=== PATIENT | male | born 1950 | race Caucasian/White ===

== ENCOUNTER 2021-12-25 16:51 | Inpatient (IN) | payer OTHER ==
[2021-12-25 17:36] VITALS: BMI 19.3
[2021-12-26] MEDS ORDERED: IBUPROFEN 400 MG TABLET (FP) PO ONE (00:14)
[2021-12-26] MEDS ORDERED: MENTHOL/PHENOL 1 EACH UD MM PRN (00:57)
[2021-12-26] MEDS ORDERED: NICOTINE 10 MG CARTRIDGE (INHALER) IH PRN (00:57)
[2021-12-26] MEDS ORDERED: ACETAMINOPHEN 325 MG TABLET (FP) PO PRN ×2 (00:57)
[2021-12-26] MEDS ORDERED: MAGNESIUM CITRATE 300 ML BOTTLE PO PRN (00:57)
[2021-12-26] MEDS ORDERED: NICOTINE POLACRILEX 2 MG GUM BUC PRN (00:57)
[2021-12-26] MEDS ORDERED: IBUPROFEN 400 MG TABLET (FP) PO PRN (00:57)
[2021-12-26] MEDS ORDERED: MAGNESIUM HYDROX 2400MG/30ML ORAL SUSPENSION 30 ML CUP PO PRN (00:57)
[2021-12-26] MEDS ORDERED: BISMUTH SUBSALICYLATE 524 MG/30 ML PO PRN (00:57)
[2021-12-26] MEDS ORDERED: MAG HYDROX/AL HYDROX/SIMETH 30 ML UNIT-DOSE CUP PO PRN (00:57)
[2021-12-26] MEDS ORDERED: ONDANSETRON *ODT* 4 MG TABLET SL PRN (00:57)
[2021-12-26] MEDS ORDERED: chlordiazePOXIDE HCL 25 MG CAPSULE PO PRN (01:00)
[2021-12-26] MEDS: chlordiazePOXIDE HCL 25 MG CAPSULE PO SCH ×4 (07:00→22:56)
[2021-12-26] MEDS ORDERED: chlordiazePOXIDE HCL 25 MG CAPSULE ONE (07:06)
[2021-12-26] MEDS: NICOTINE 14 MG/24 HOURS TOPICAL PATCH TD SCH (11:33)
[2021-12-26] MEDS: PRENATAL VITAMINS W/ FOLIC ACID TABLET (FP) PO SCH (11:45)
[2021-12-26] MEDS: methaDONE HCL 40 MG DISPERSABLE TABLET PO SCH (11:45)
[2021-12-26] MEDS: THIAMINE HCL 100 MG TABLET (FP) PO SCH (22:56)
[2021-12-26] MEDS: MELATONIN 5 MG TABLETS PO SCH (22:56)
[2021-12-26] MEDS: METHOCARBAMOL 500 MG TABLET PO PRN (22:57)
[2021-12-27] MEDS: chlordiazePOXIDE HCL 25 MG CAPSULE PO SCH ×4 (07:42→22:52)
[2021-12-27] MEDS: methaDONE HCL 40 MG DISPERSABLE TABLET PO SCH (07:42)
[2021-12-27] MEDS: NICOTINE 14 MG/24 HOURS TOPICAL PATCH TD SCH (10:32)
[2021-12-27] MEDS: PRENATAL VITAMINS W/ FOLIC ACID TABLET (FP) PO SCH (10:33)
[2021-12-27 12:04] LABS: HEMATOCRIT 40.3 % (35.4-49); HEMOGLOBIN 13.5 GM/dL (11.7-16.9); MCH 31.5 pg (25.7-33.7); MCHC 33.5 g/dl (32.0-35.9); MEAN CELL VOLUME 93.9 fl (80-96); MEAN PLT VOLUME 8.1 fl (7.5-11.1); PLATELET COUNT 149 10^3/uL (134-434); RBC 4.29 M/mm3 (4.00-5.60); RDW 15.2 % (11.9-15.9); WHITE BLOOD COUNT 4.3 K/mm3 (4.0-10.0)
[2021-12-27 12:12] LABS: CALCIUM 9.4 mg/dL (8.5-10.1)
[2021-12-27 12:13] LABS: ALBUMIN 3.2 g/dl (3.4-5.0); BLOOD UREA NITROGEN 16.5 mg/dL (7-18)
[2021-12-27 12:16] LABS: CREATININE 0.6 mg/dL (0.55-1.3)
[2021-12-27 12:18] LABS: BILIRUBIN,TOTAL 0.7 mg/dL (0.2-1)
[2021-12-27] MEDS: MELATONIN 5 MG TABLETS PO SCH (22:53)
[2021-12-27] MEDS: THIAMINE HCL 100 MG TABLET (FP) PO SCH (22:53)
[2021-12-28] MEDS ORDERED: chlordiazePOXIDE HCL 10 MG CAPSULE PO PRN
[2021-12-28] MEDS: chlordiazePOXIDE HCL 10 MG CAPSULE PO SCH ×4 (06:26→22:04)
[2021-12-28] MEDS: methaDONE HCL 40 MG DISPERSABLE TABLET PO SCH (06:27)
[2021-12-28] MEDS: METHOCARBAMOL 500 MG TABLET PO PRN ×2 (10:53→18:40)
[2021-12-28] MEDS: PRENATAL VITAMINS W/ FOLIC ACID TABLET (FP) PO SCH (10:53)
[2021-12-28] MEDS: NICOTINE 14 MG/24 HOURS TOPICAL PATCH TD SCH (10:54)
[2021-12-28] MEDS: THIAMINE HCL 100 MG TABLET (FP) PO SCH (22:04)
[2021-12-28] MEDS: MELATONIN 5 MG TABLETS PO SCH (22:04)
[2021-12-29] MEDS: methaDONE HCL 40 MG DISPERSABLE TABLET PO SCH (06:16)
[2021-12-29] MEDS: chlordiazePOXIDE HCL 10 MG CAPSULE PO SCH ×2 (06:17→17:31)
[2021-12-29] MEDS: PRENATAL VITAMINS W/ FOLIC ACID TABLET (FP) PO SCH (11:12)
[2021-12-29] MEDS: NICOTINE 14 MG/24 HOURS TOPICAL PATCH TD SCH (11:12)
[2021-12-29] MEDS: THIAMINE HCL 100 MG TABLET (FP) PO SCH (22:46)
[2021-12-29] MEDS: MELATONIN 5 MG TABLETS PO SCH (22:46)
[2021-12-29] MEDS: METHOCARBAMOL 500 MG TABLET PO PRN (22:47)
[2021-12-30] MEDS ORDERED: chlordiazePOXIDE HCL 10 MG CAPSULE PO ONE (05:00)
[2021-12-30] MEDS: methaDONE HCL 40 MG DISPERSABLE TABLET PO SCH (06:48)
[2021-12-30] MEDS: NICOTINE 14 MG/24 HOURS TOPICAL PATCH TD SCH (09:51)
[2021-12-30] MEDS: PRENATAL VITAMINS W/ FOLIC ACID TABLET (FP) PO SCH (09:51)
[2021-12-30] MEDS: MELATONIN 5 MG TABLETS PO SCH (23:58)
[2021-12-30] MEDS: THIAMINE HCL 100 MG TABLET (FP) PO SCH (23:58)
[2021-12-31] MEDS: methaDONE HCL 40 MG DISPERSABLE TABLET PO SCH (06:30)
[2021-12-31] MEDS: PRENATAL VITAMINS W/ FOLIC ACID TABLET (FP) PO SCH (11:03)
[2021-12-31] MEDS: NICOTINE 14 MG/24 HOURS TOPICAL PATCH TD SCH (11:04)
[2021-12-31] MEDS: MELATONIN 5 MG TABLETS PO SCH (21:56)
[2021-12-31] MEDS: METHOCARBAMOL 500 MG TABLET PO PRN (21:56)
[2021-12-31] MEDS: THIAMINE HCL 100 MG TABLET (FP) PO SCH (21:56)
[2022-01-01] MEDS: methaDONE HCL 40 MG DISPERSABLE TABLET PO SCH (06:31)
[2022-01-01] MEDS: NICOTINE 14 MG/24 HOURS TOPICAL PATCH TD SCH (11:54)
[2022-01-01] MEDS: PRENATAL VITAMINS W/ FOLIC ACID TABLET (FP) PO SCH (11:54)
[2022-01-01] MEDS: THIAMINE HCL 100 MG TABLET (FP) PO SCH (23:22)
[2022-01-01] MEDS: MELATONIN 5 MG TABLETS PO SCH (23:22)
[2022-01-02] MEDS: methaDONE HCL 40 MG DISPERSABLE TABLET PO SCH (07:00)
[2022-01-02] MEDS: NICOTINE 14 MG/24 HOURS TOPICAL PATCH TD SCH (12:08)
[2022-01-02] MEDS: PRENATAL VITAMINS W/ FOLIC ACID TABLET (FP) PO SCH (12:08)
[2022-01-02] MEDS: MELATONIN 5 MG TABLETS PO SCH (23:31)
[2022-01-02] MEDS: THIAMINE HCL 100 MG TABLET (FP) PO SCH (23:32)
[2022-01-03] MEDS: methaDONE HCL 40 MG DISPERSABLE TABLET PO SCH (07:01)
[2022-01-03] MEDS: PRENATAL VITAMINS W/ FOLIC ACID TABLET (FP) PO SCH (11:34)
[2022-01-03] MEDS: NICOTINE 14 MG/24 HOURS TOPICAL PATCH TD SCH (11:34)
[2022-01-03] MEDS: THIAMINE HCL 100 MG TABLET (FP) PO SCH (22:26)
[2022-01-03] MEDS: MELATONIN 5 MG TABLETS PO SCH (22:26)
[2022-01-04] MEDS: methaDONE HCL 40 MG DISPERSABLE TABLET PO SCH (06:24)
[2022-01-04] MEDS ORDERED: COLLOIDAL OATMEAL 1 BAR EACH TP PRN (09:33)
[2022-01-04] MEDS: NICOTINE 14 MG/24 HOURS TOPICAL PATCH TD SCH (11:19)
[2022-01-04] MEDS: PRENATAL VITAMINS W/ FOLIC ACID TABLET (FP) PO SCH (11:20)
[2022-01-04] MEDS: THIAMINE HCL 100 MG TABLET (FP) PO SCH (22:58)
[2022-01-04] MEDS: MELATONIN 5 MG TABLETS PO SCH (22:58)
[2022-01-05] MEDS: methaDONE HCL 40 MG DISPERSABLE TABLET PO SCH (06:16)
[2022-01-05] MEDS: NICOTINE 14 MG/24 HOURS TOPICAL PATCH TD SCH (10:58)
[2022-01-05] MEDS: PRENATAL VITAMINS W/ FOLIC ACID TABLET (FP) PO SCH (10:58)
[2022-01-05 12:58] VITALS: BP 134/72; PULSE 66; TEMP 97.1
== END 2022-01-05 15:05 | disposition home or self-care (01) | DRG 896 ==
LOC: YASAS 16:51 → Y6N 12-26 05:22
PROVIDERS: ADMIT Allergy & Immunology; ATTEND Allergy & Immunology
PROC: HZ2ZZZZ Detoxification Services for Substance Abuse Treatment (ICD-10-PCS; principal; 2021-12-26)
DX: F10.230 Alcohol dependence with withdrawal, uncomplicated (principal); U07.1 COVID-19; F11.20 Opioid dependence, uncomplicated; F17.210 Nicotine dependence, cigarettes, uncomplicated; F19.24 Other psychoactive substance dependence with psychoactive substance-induced mood disorder; F32.A Depression, unspecified; I10 Essential (primary) hypertension; H54.61 Unqualified visual loss, right eye, normal vision left eye; Z99.89 Dependence on other enabling machines and devices; Z86.11 Personal history of tuberculosis; Z86.69 Personal history of other diseases of the nervous system and sense organs; Z95.0 Presence of cardiac pacemaker
CPT/HCPCS: 36415; 71046-TC-FY; 80053; 85027; 86780; 93005; 93010; C9803; U0003; U0005

== ENCOUNTER 2023-09-14 10:50 | Inpatient (IN) | payer OTHER ==
[2023-09-14 11:43] VITALS: BMI 18.3
[2023-09-14] MEDS ORDERED: MAGNESIUM HYDROX 2400MG/30ML ORAL SUSPENSION 30 ML CUP PO PRN (12:04)
[2023-09-14] MEDS ORDERED: hydrOXYzine PAMOATE 25 MG CAPSULE (FP) PO PRN (12:04)
[2023-09-14] MEDS ORDERED: NALOXONE HCL (KLOXXADO) 8 MG SPRAY NS PRN (12:04)
[2023-09-14] MEDS ORDERED: NICOTINE POLACRILEX 2 MG GUM BUC PRN (12:04)
[2023-09-14] MEDS ORDERED: LOPERAMIDE HCL 2 MG CAPSULE PO PRN (12:04)
[2023-09-14] MEDS ORDERED: BENZOCAINE/MENTHOL (CHLORASEPTIC ) LOZENGE MM PRN (12:04)
[2023-09-14] MEDS ORDERED: IBUPROFEN 600 MG TABLET (FP) PO PRN (12:04)
[2023-09-14] MEDS ORDERED: BISMUTH SUBSALICYLATE 262 MG/15 ML BTL PO PRN (12:04)
[2023-09-14] MEDS ORDERED: METHOCARBAMOL 500 MG TABLET PO PRN (12:04)
[2023-09-14] MEDS ORDERED: BENZONATATE 200 MG CAPSULE PO PRN (12:04)
[2023-09-14] MEDS ORDERED: ACETAMINOPHEN 325 MG TABLET (FP) PO PRN (12:04)
[2023-09-14] MEDS ORDERED: NALOXONE HCL 0.4 MG/ML VIAL IM PRN (12:04)
[2023-09-14] MEDS ORDERED: IBUPROFEN 400 MG TABLET (FP) PO PRN (12:04)
[2023-09-14] MEDS ORDERED: MAG HYDROX/AL HYDROX/SIMETH 30 ML UNIT-DOSE CUP PO PRN (12:04)
[2023-09-14] MEDS ORDERED: POLYETHYLENE GLYCOL (HEALTHYLAX) 3350 17 GM PACKET PO PRN (12:04)
[2023-09-14] MEDS ORDERED: ONDANSETRON *ODT* 4 MG TABLET SL PRN (12:04)
[2023-09-14] MEDS ORDERED: guaiFENesin 600 MG TABLET.ER (FP) PO PRN (12:04)
[2023-09-14] MEDS ORDERED: DICYCLOMINE HCL 10 MG CAPSULE PO PRN (12:04)
[2023-09-14] MEDS: LORazepam 1 MG TABLET PO PRN (12:43)
[2023-09-14] MEDS: PRENATAL VITAMINS W/ FOLIC ACID TABLET (FP) PO SCH (12:56)
[2023-09-14] MEDS ORDERED: LORazepam 1 MG TABLET ONE (12:57)
[2023-09-14] MEDS ORDERED: cloNIDine HCL 0.1 MG TABLET PO ONE (14:00)
[2023-09-14] MEDS ORDERED: methaDONE HCL 10 MG TABLET PO SCH (15:00)
[2023-09-14] MEDS: methaDONE 40 MG, methaDONE 10 MG PO SCH (15:05)
[2023-09-14] MEDS: LORazepam 2 MG TABLET PO SCH ×2 (17:15→22:23)
[2023-09-14 17:17] LABS: CHLORIDE 96 mmol/L (98-107); POTASSIUM 3.9 mmol/L (3.5-5.1); SODIUM 137 mmol/L (136-145)
[2023-09-14 17:18] LABS: HEMATOCRIT 45.8 % (35.4-49); HEMOGLOBIN 15.3 GM/dL (11.7-16.9); MCH 32.1 pg (25.7-33.7); MCHC 33.4 g/dl (32.0-35.9); MEAN PLT VOLUME 9.3 fl (7.5-11.1); PLATELET COUNT 108 10^3/uL (134-434); RBC 4.77 M/mm3 (4.00-5.60); RDW 13.6 % (11.9-15.9); WHITE BLOOD COUNT 4.9 K/mm3 (4.0-10.0)
[2023-09-14 17:23] LABS: ALBUMIN 4.2 g/dl (3.4-5.0); ANION GAP 11 mmol/L (4-13); BLOOD UREA NITROGEN 14.1 mg/dL (7-18); CO2 31 mmol/L (21-32); GLUCOSE,RANDOM 81 mg/dL (74-106)
[2023-09-14 17:26] LABS: CREATININE 0.9 mg/dL (0.55-1.3); SGOT/AST 106 U/L (15-37); SGPT/ALT 64 U/L (13-61)
[2023-09-14 17:27] LABS: TOT PROT 9.1 g/dl (6.4-8.2)
[2023-09-14 17:28] LABS: BILIRUBIN,TOTAL 1.6 mg/dL (0.2-1)
[2023-09-14 17:29] LABS: ALK PHOS 118 U/L (45-117)
[2023-09-14] MEDS: THIAMINE HCL 100 MG TABLET (FP) PO SCH (22:24)
[2023-09-14] MEDS: MELATONIN 5 MG TABLETS PO SCH (22:25)
[2023-09-15] MEDS: LORazepam 1 MG TABLET PO PRN (01:02)
[2023-09-15] MEDS ORDERED: LORazepam 2 MG/ML SDV VIAL IM ONE (01:36)
[2023-09-15] MEDS: LORazepam 2 MG TABLET PO SCH ×4 (05:19→23:06)
[2023-09-15] MEDS: methaDONE 40 MG, methaDONE 10 MG PO SCH (05:19)
[2023-09-15] MEDS ORDERED: cloNIDine HCL 0.1 MG TABLET PO ONE (07:15)
[2023-09-15] MEDS: PRENATAL VITAMINS W/ FOLIC ACID TABLET (FP) PO SCH (10:42)
[2023-09-15] MEDS: LACTULOSE 20 GM/30 ML UDC (FOR ORAL USE ONLY) PO SCH ×3 (13:25→22:51)
[2023-09-15] MEDS: THIAMINE HCL 100 MG TABLET (FP) PO SCH (22:51)
[2023-09-15] MEDS: MELATONIN 5 MG TABLETS PO SCH (23:06)
[2023-09-16] MEDS: LORazepam 1 MG TABLET PO SCH ×4 (05:54→21:59)
[2023-09-16] MEDS: methaDONE 40 MG, methaDONE 10 MG PO SCH (05:58)
[2023-09-16] MEDS: PRENATAL VITAMINS W/ FOLIC ACID TABLET (FP) PO SCH (10:03)
[2023-09-16] MEDS: LACTULOSE 20 GM/30 ML UDC (FOR ORAL USE ONLY) PO SCH ×4 (10:03→21:57)
[2023-09-16 12:21] LABS: POTASSIUM 3.7 mmol/L (3.5-5.1)
[2023-09-16 12:37] LABS: BILIRUBIN,TOTAL 1.4 mg/dL (0.2-1)
[2023-09-16 12:41] LABS: ALBUMIN 3.7 g/dl (3.4-5.0); CALCIUM 9.8 mg/dL (8.5-10.1)
[2023-09-16 12:42] LABS: BLOOD UREA NITROGEN 14.4 mg/dL (7-18)
[2023-09-16 12:43] LABS: CREATININE 0.7 mg/dL (0.55-1.3)
[2023-09-16 12:45] LABS: TOT PROT 7.8 g/dl (6.4-8.2)
[2023-09-16] MEDS: THIAMINE HCL 100 MG TABLET (FP) PO SCH (21:58)
[2023-09-16] MEDS: MELATONIN 5 MG TABLETS PO SCH (21:58)
[2023-09-17] MEDS ORDERED: LORazepam 0.5 MG TABLET PO PRN
[2023-09-17] MEDS: methaDONE 40 MG, methaDONE 10 MG PO SCH (05:31)
[2023-09-17] MEDS: LORazepam 0.5 MG TABLET PO SCH ×4 (05:31→22:44)
[2023-09-17] MEDS: PRENATAL VITAMINS W/ FOLIC ACID TABLET (FP) PO SCH (10:37)
[2023-09-17] MEDS: LACTULOSE 20 GM/30 ML UDC (FOR ORAL USE ONLY) PO SCH ×4 (10:38→22:48)
[2023-09-17] MEDS: MELATONIN 5 MG TABLETS PO SCH (22:44)
[2023-09-17] MEDS: THIAMINE HCL 100 MG TABLET (FP) PO SCH (22:44)
[2023-09-18] MEDS ORDERED: LORazepam 0.5 MG TABLET PO ONE (05:00)
[2023-09-18] MEDS: methaDONE 40 MG, methaDONE 10 MG PO SCH (05:51)
[2023-09-18 09:38] VITALS: BP 145/78; PULSE 62; RESP 16; TEMP 97.3
[2023-09-18] MEDS ORDERED: LISINOPRIL 5 MG TABLET PO SCH (10:00)
[2023-09-18] MEDS: PRENATAL VITAMINS W/ FOLIC ACID TABLET (FP) PO SCH (10:25)
[2023-09-18] MEDS: LACTULOSE 20 GM/30 ML UDC (FOR ORAL USE ONLY) PO SCH (10:25)
== END 2023-09-18 10:58 | disposition home or self-care (01) | DRG 897 ==
LOC: YASAS 10:50 → Y6N 12:23
PROVIDERS: ADMIT Allergy & Immunology; ATTEND Surgery
PROC: HZ2ZZZZ Detoxification Services for Substance Abuse Treatment (ICD-10-PCS; principal; 2023-09-14)
DX: F10.230 Alcohol dependence with withdrawal, uncomplicated (principal); F11.20 Opioid dependence, uncomplicated; F17.210 Nicotine dependence, cigarettes, uncomplicated; F32.A Depression, unspecified; H54.61 Unqualified visual loss, right eye, normal vision left eye; I10 Essential (primary) hypertension; B18.2 Chronic viral hepatitis C; G25.2 Other specified forms of tremor; R79.89 Other specified abnormal findings of blood chemistry; R26.89 Other abnormalities of gait and mobility; Z86.19 Personal history of other infectious and parasitic diseases; Z91.81 History of falling; Z99.89 Dependence on other enabling machines and devices
CPT/HCPCS: 36415; 80053; 80307; 82140; 85027; 86780; 87635